=== PATIENT | male | born 1950 | race Caucasian/White ===

== ENCOUNTER 2024-03-26 09:33 | Inpatient (IN) | payer MEDICARE ==
[2024-03-26] MEDS ORDERED: Ibuprofen 200 MG TAB ONE (10:25)
[2024-03-26 10:37] LABS: #Basophils 0.03 10x3/uL (0.0-0.2); #Eosinphils 0.04 10x3/uL (0.0-0.5); #Monocytes 1.15 10x3/uL (0.0-1.1); #Neutrophils 11.15 10x3/uL (1.5-8.4); %Basophils 0.2 % (0.0-2.0); %Eosinophils 0.3 % (0.0-6.0); %Lymphocytes 13.1 % (18.0-47.0); Hematocrit 38.4 % (38.8-50.0); Hemoglobin 13.6 g/dL (13.5-17.5); Mean Corpuscular HGB CONC 35.4 g/dL (32.0-36.0); Mean Corpuscular Volume 90.4 fL (81.2-95.1); Mean Platelet Volume 9.1 fL (7.4-10.4); Platelet Count 225 10x3/uL (150-450); RBC Distribution Width 13.2 % (11.5-14.5); Red Blood Cell (RBC) Count 4.25 10x6/uL (4.32-5.72); White Blood Cell (WBC) Count 14.3 10x3/uL (3.5-10.5)
[2024-03-26] MEDS ORDERED: Iopamidol 300 61% 100 ML VIAL FS ONE (10:49)
[2024-03-26 10:50] LABS: ALT (SGPT) 34 U/L (8-55); AST (SGOT) 25 U/L (5-34); Albumin 3.9 g/dL (3.4-4.8); Alkaline Phosphatase 59 U/L (40-110); Anion Gap 18 mmol/L (10-20); BUN (Urea Nitrogen) 11 mg/dL (8.4-25.7); Bilirubin, Total 0.9 mg/dL (0.2-1.2); Calc. Creatinine Clearance 0 mL/min (70-130); Calcium 9.8 mg/dL (7.8-10.44); Carbon Dioxide 21 mmol/L (23-31); Chloride 90 mmol/L (98-107); Estimated GFR 89; Globulin 3.6 g/dL (2.4-3.5); Glucose 145 mg/dL (83-110); Lipase 163 U/L (8-78); Magnesium 1.1 mg/dL (1.6-2.6); Potassium 3.5 mmol/L (3.5-5.1); Protein, Total 7.5 g/dL (5.8-8.1); Sodium 125 mmol/L (136-145)
[2024-03-26 12:18] LABS: Troponin I Less than 0.010 ng/mL (< 0.028)
[2024-03-26] MEDS ORDERED: cefTRIAXone (ROCEPHIN) 2 GM VIAL ONE (12:38)
[2024-03-26] MEDS ORDERED: Magnesium 2 GM/50 ML BAG (IN WATER) ONE (12:39)
[2024-03-26 13:08] LABS: Bilirubin Neg (Negative); Blood, Urine Negative (Negative); Clarity Clear (Clear); Glucose, Urine (Dipstick) Normal (Negative); Ketone, Urine 15 mg/dL (Negative); Leukocyte 25 (Negative); Nitrite Negative (Negative); Protein, Urine (Dipstick) 30 mg/dl (Neg-Trace); Specific Gravity, Urine 1.015 (1.005-1.030); Urobilinogen Normal mg/dL (Less than 2)
[2024-03-26 13:16] LABS: Bacteria/HPF None Seen HPF (None Seen); CAUTI Indications for Culture Dysuria,urgency,freq; RBC/HPF None Seen HPF (0-3); Squamous Epithelial 0-3 HPF (0-3); Urine Culture Reflex No No; WBC/HPF 0-3 HPF (0-3)
[2024-03-26 13:37] LABS: Lactic Acid 3.5 mmol/L (0.5-2.2)
[2024-03-26 14:40] VITALS: BMI 35.5
[2024-03-26 15:11] LABS: Troponin I 0.016 ng/mL (< 0.028)
[2024-03-26] MEDS ORDERED: Dextrose 5% in Water 1,000 ML IV PRN (15:22)
[2024-03-26] MEDS ORDERED: Glucagon 1 MG/ML KIT IM PRN (15:22)
[2024-03-26] MEDS ORDERED: Ondansetron ODT 4 MG TAB PO PRN (15:22)
[2024-03-26] MEDS ORDERED: Ondansetron PF 4 MG/2 ML Vial IVP PRN (15:22)
[2024-03-26] MEDS ORDERED: Acetaminophen 325 MG TAB PO PRN (15:22)
[2024-03-26] MEDS ORDERED: HYDROcodone/Acetaminophen 5/325 mg Tablet PO PRN (15:22)
[2024-03-26] MEDS ORDERED: Dextrose 50% Abboject 50 ML SYRINGE SLOW IVP PRN (15:22)
[2024-03-26] MEDS ORDERED: Insulin Regular 300 UNITS/3 ML VIAL SC PRN ×2 (15:46)
[2024-03-26 16:10] LABS: Anion Gap 13 mmol/L (10-20); BUN (Urea Nitrogen) 10 mg/dL (8.4-25.7); Calc. Creatinine Clearance 115 mL/min (70-130); Calcium 8.8 mg/dL (7.8-10.44); Carbon Dioxide 22 mmol/L (23-31); Chloride 90 mmol/L (98-107); Estimated GFR 93; Glucose 125 mg/dL (83-110); Potassium 3.3 mmol/L (3.5-5.1); Sodium 122 mmol/L (136-145)
[2024-03-26] MEDS: Sodium Chloride 0.9% 1,000 ML IV SCH (17:44)
[2024-03-26] MEDS: metFORMIN 500 MG TAB PO SCH (17:44)
[2024-03-26] MEDS: HYDROcodone/Acetaminophen 5/325 mg Tablet PO PRN (17:44)
[2024-03-26 18:05] LABS: Troponin I Less than 0.010 ng/mL (< 0.028)
[2024-03-26 20:11] LABS: Potassium, Urine 33.6 mmol/L
[2024-03-26 21:59] LABS: Anion Gap 13 mmol/L (10-20); BUN (Urea Nitrogen) 10 mg/dL (8.4-25.7); Calc. Creatinine Clearance 117 mL/min (70-130); Calcium 8.9 mg/dL (7.8-10.44); Carbon Dioxide 23 mmol/L (23-31); Chloride 92 mmol/L (98-107); Estimated GFR 93; Glucose 136 mg/dL (83-110); Potassium 3.1 mmol/L (3.5-5.1); Sodium 125 mmol/L (136-145)
[2024-03-27] MEDS: Potassium Chloride 20 MEQ TAB PO SCH ×3 (03:50→17:02)
[2024-03-27 05:10] LABS: #Basophils 0.02 10x3/uL (0.0-0.2); #Eosinphils 0.11 10x3/uL (0.0-0.5); #Monocytes 0.64 10x3/uL (0.0-1.1); #Neutrophils 4.42 10x3/uL (1.5-8.4); %Basophils 0.3 % (0.0-2.0); %Eosinophils 1.6 % (0.0-6.0); %Lymphocytes 23.3 % (18.0-47.0); %Monocytes 9.4 % (0.0-10.0); Hematocrit 32.4 % (38.8-50.0); Hemoglobin 11.6 g/dL (13.5-17.5); Mean Corpuscular HGB CONC 35.8 g/dL (32.0-36.0); Mean Corpuscular Hemoglobin 31.7 pg (27.0-33.0); Mean Corpuscular Volume 88.5 fL (81.2-95.1); Mean Platelet Volume 9.3 fL (7.4-10.4); Platelet Count 204 10x3/uL (150-450); RBC Distribution Width 13.3 % (11.5-14.5); Red Blood Cell (RBC) Count 3.66 10x6/uL (4.32-5.72); White Blood Cell (WBC) Count 6.8 10x3/uL (3.5-10.5)
[2024-03-27 05:18] LABS: Anion Gap 15 mmol/L (10-20); BUN (Urea Nitrogen) 8 mg/dL (8.4-25.7); Calc. Creatinine Clearance 123 mL/min (70-130); Calcium 8.8 mg/dL (7.8-10.44); Carbon Dioxide 19 mmol/L (23-31); Chloride 93 mmol/L (98-107); Estimated GFR 95; Glucose 144 mg/dL (83-110); Magnesium 1.3 mg/dL (1.6-2.6); Potassium 3.1 mmol/L (3.5-5.1); Sodium 124 mmol/L (136-145)
[2024-03-27] MEDS: Magnesium 2 GM/50 ML(in water) 2 GM in Premix 1 BAG IVPB SCH ×2 (05:40→08:30)
[2024-03-27] MEDS: ALPRAZolam 0.5 MG TAB PO SCH (08:28)
[2024-03-27] MEDS: Tamsulosin HCl 0.4 MG CAP PO SCH (08:29)
[2024-03-27] MEDS: Aspirin 81 mg Enteric Coated Tablet PO SCH (08:29)
[2024-03-27] MEDS: Sodium Bicarbonate Tab 325 MG TAB PO SCH (08:29)
[2024-03-27] MEDS: Atorvastatin Calcium 10 MG TAB PO SCH (08:29)
[2024-03-27] MEDS: Gabapentin 100 MG CAP PO SCH (08:29)
[2024-03-27] MEDS: Enoxaparin 40 MG (0.4 mL) SYRINGE SC SCH (08:29)
[2024-03-27] MEDS: Dutasteride 0.5 MG CAP PO SCH (09:04)
[2024-03-27 10:25] LABS: Anion Gap 14 mmol/L (10-20); BUN (Urea Nitrogen) 7 mg/dL (8.4-25.7); Calc. Creatinine Clearance 114 mL/min (70-130); Calcium 9.3 mg/dL (7.8-10.44); Carbon Dioxide 24 mmol/L (23-31); Chloride 91 mmol/L (98-107); Estimated GFR 92; Glucose 192 mg/dL (83-110); Potassium 3.9 mmol/L (3.5-5.1); Sodium 125 mmol/L (136-145)
[2024-03-27 13:15] LABS: Anion Gap 14 mmol/L (10-20); BUN (Urea Nitrogen) 8 mg/dL (8.4-25.7); Calc. Creatinine Clearance 118 mL/min (70-130); Calcium 9.4 mg/dL (7.8-10.44); Carbon Dioxide 23 mmol/L (23-31); Chloride 95 mmol/L (98-107); Estimated GFR 94; Glucose 129 mg/dL (83-110); Potassium 3.9 mmol/L (3.5-5.1); Sodium 128 mmol/L (136-145)
[2024-03-28 02:21] LABS: #Basophils 0.05 10x3/uL (0.0-0.2); #Eosinphils 0.14 10x3/uL (0.0-0.5); #Monocytes 0.75 10x3/uL (0.0-1.1); #Neutrophils 4.18 10x3/uL (1.5-8.4); %Basophils 0.7 % (0.0-2.0); %Eosinophils 1.8 % (0.0-6.0); %Monocytes 9.8 % (0.0-10.0); %Neutrophils 54.3 % (40.0-75.0); Hematocrit 36.1 % (38.8-50.0); Hemoglobin 12.6 g/dL (13.5-17.5); Mean Corpuscular HGB CONC 34.9 g/dL (32.0-36.0); Mean Corpuscular Hemoglobin 31.9 pg (27.0-33.0); Mean Corpuscular Volume 91.4 fL (81.2-95.1); Mean Platelet Volume 9.2 fL (7.4-10.4); Platelet Count 233 10x3/uL (150-450); RBC Distribution Width 13.8 % (11.5-14.5); Red Blood Cell (RBC) Count 3.95 10x6/uL (4.32-5.72); White Blood Cell (WBC) Count 7.7 10x3/uL (3.5-10.5)
[2024-03-28 02:38] LABS: Anion Gap 13 mmol/L (10-20); BUN (Urea Nitrogen) 8 mg/dL (8.4-25.7); Calc. Creatinine Clearance 112 mL/min (70-130); Calcium 9.3 mg/dL (7.8-10.44); Carbon Dioxide 24 mmol/L (23-31); Chloride 100 mmol/L (98-107); Estimated GFR 92; Glucose 127 mg/dL (83-110); Potassium 4.3 mmol/L (3.5-5.1); Sodium 133 mmol/L (136-145)
[2024-03-28 08:26] LABS: Magnesium 1.9 mg/dL (1.6-2.6)
[2024-03-28 10:23] VITALS: BP 141/67; TEMP 97.5
== END 2024-03-28 11:11 | disposition home or self-care (01) | DRG 872 ==
LOC: CSHERS 09:33 → CSHTELE 14:18
PROVIDERS: ADMIT Family Medicine; ATTEND Family Medicine
PROC: 5A09357 Assistance with Respiratory Ventilation, Less than 24 Consecutive Hours, Continuous Positive Airway Pressure (ICD-10-PCS; principal; 2024-03-26)
PROC: 3E03329 Introduction of Other Anti-infective into Peripheral Vein, Percutaneous Approach (ICD-10-PCS; 2024-03-26)
DX: A41.9 Sepsis, unspecified organism (principal); N30.00 Acute cystitis without hematuria; E22.2 Syndrome of inappropriate secretion of antidiuretic hormone; E11.9 Type 2 diabetes mellitus without complications; I10 Essential (primary) hypertension; E78.5 Hyperlipidemia, unspecified; J44.9 Chronic obstructive pulmonary disease, unspecified; I25.2 Old myocardial infarction; Z79.82 Long term (current) use of aspirin; Z79.899 Other long term (current) drug therapy; F41.9 Anxiety disorder, unspecified; Z98.890 Other specified postprocedural states; Z94.7 Corneal transplant status; Z87.891 Personal history of nicotine dependence
CPT/HCPCS: 36415; 36416; 74177; 80048; 80053; 81001; 82436; 83605; 83690; 83735; 83930; 83935; 84133; 84300; 84484; 84560; 85025; 87040; 87086; 93005; 96365; 96375; J0696; J1650; J3475; J7050; Q9967